=== PATIENT | male | born 1950 | race Two or more races ===

== ENCOUNTER 2022-08-24 04:32 | Inpatient (IN) | payer MEDICARE, OTHER ==
[~2022-08-24] VITALS: Ht 167.6 cm; Wt 72.1 kg
--- NOTE | 2022-08-24 04:45 | NUR ---
MARLEEN 83 FROM HOME FOR C/O ABD PAIN , N/V/D X 1 DAY. PATIENT IS AAOX4. ABLE TO MAKE NEEDS KNOWN. PATIENT IS HAVING ABDOMINAL CRAMPS AND ASKING FOR PAIN MEDS. PATIENT IS PLACED COMFORTABLY IN BE.D VITALS CHECKED.
--- NOTE | 2022-08-24 05:13 | NUR ---
IV CANNULA G20 INSERTED ON LEFT WRIST G20. BLOOD DRAWN AND SENT TO LAB
[2022-08-24 05:21] LABS: BASOPHILS % (AUTO) 0.3 % (0.0-2.0); EOSINOPHILS % (AUTO) 0.3 % (0.0-6.0); HEMATOCRIT 51 % (39-51); HEMOGLOBIN 16.6 g/dL (13.5-17.5); LYMPHOCYTES % (AUTO) 6.3 % (20.0-44.0); MEAN CORPUSCULAR HGB CONC 33 g/dl (31.0-36.0); MEAN CORPUSCULAR VOLUME 90 fL (80-96); MONOCYTES % (AUTO) 6.3 % (2.0-12.0); NEUTROPHILS # (AUTO) 13.9 K/uL (1.8-8.9); NEUTROPHILS % (AUTO) 86.8 % (43.0-81.0); PLATELET COUNT (AUTO) 317 K/uL (150-450); RED BLOOD CELL COUNT(AUTO) 5.67 MIL/uL (4.5-6.0)
[2022-08-24 05:40] LABS: ALANINE AMINOTRANSFERASE 23 U/L (12-78); ALBUMIN 3.8 g/dL (3.4-5.0); ALKALINE PHOSPHATASE 104 U/L (46-116); ASPARTATE AMINOTRANSFERASE 19 U/L (15-37); BILIRUBIN,DIRECT 0.2 mg/dL (0.0-0.2); BILIRUBIN,TOTAL 0.7 mg/dL (0.2-1.0); CALCIUM, SERUM 9.5 mg/dL (8.5-10.1); CARBON DIOXIDE 22 mmol/L (21-32); CHLORIDE 99 mmol/L (98-107); CREATININE 1.2 mg/dL (0.6-1.3); GLUCOSE 195 mg/dL (74-106); LIPASE 122 U/L (73-393); POTASSIUM 4.1 mmol/L (3.5-5.1); SODIUM SERUM 131 mmol/L (136-145); TOTAL PROTEIN, SERUM 7.7 g/dL (6.4-8.2); UREA NITROGEN, BLOOD 20 mg/dL (7-18)
[2022-08-24] MEDS ORDERED: MORPHINE SULFATE INJ 2 MG/ML DISP.SYRIN IV ONE (06:00)
[2022-08-24] MEDS ORDERED: PIPERACILLIN /TAZOBACTAM 3.375 G in IV D5W 50 ML IV ONE (06:00)
--- NOTE | 2022-08-24 06:00 | NUR ---
CRIME SCENE SPECIALIST CAME TO DRAW BLOOD
[2022-08-24] MEDS ORDERED: PIPERACILLIN /TAZOBACTAM 3.375 G VIAL IV ONE (06:07)
[2022-08-24] MEDS ORDERED: MORPHINE SULFATE INJ 2 MG/ML DISP.SYRIN ONE (06:07)
--- NOTE | 2022-08-24 06:11 | NUR ---
TAKEN TO CT VIA [facility]
--- NOTE | 2022-08-24 06:11 | NUR ---
URINE SPECIMEN SENT TO LAB
[2022-08-24 06:24] LABS: BILIRUBIN,URINE NEGATIVE (NEGATIVE); COLOR,URINE YELLOW (YELLOW); LEUKOCYTE ESTERASE ,URINE NEGATIVE (NEGATIVE); NITRITE, URINE NEGATIVE (NEGATIVE); PH,URINE 8.5 (5.0-8.0); PROTEIN,URINE TRACE mg/dl (NEGATIVE); UGLUCOSE NEGATIVE (NEGATIVE); UROBILINOGEN,URINE 0.2 EU/dL (0.2)
--- NOTE | 2022-08-24 06:27 | NUR ---
CAME BACK FROM CT SCAN
--- NOTE | 2022-08-24 06:58 | NUR ---
COVID SWAB DONE AND SENT TO LAB
--- NOTE | 2022-08-24 06:59 | NUR ---
DR EDWARDS PAGED PER DR NELSON
[2022-08-24] MEDS ORDERED: KETOROLAC TROMETHAMINE INJ 30 MG/ML VIAL IV ONE (07:00)
[2022-08-24] MEDS ORDERED: IV NS 0.9% 1,000 ML IV ONE (07:00)
[2022-08-24] MEDS ORDERED: KETOROLAC TROMETHAMINE INJ 30 MG/ML VIAL ONE (07:05)
--- NOTE | 2022-08-24 07:15 | NUR ---
RECEIVED PT FROM IMELDA FIELDS PT AWAKE AND ALERT NO ABDOMINAL pain no n/v
--- NOTE | 2022-08-24 07:16 | NUR ---
REPORT GIVEN TO DIAMOND LEE
--- NOTE | 2022-08-24 08:21 | NUR ---
NGTUbe placed , called xray for confirmation.
--- NOTE | 2022-08-24 08:34 | NUR ---
ABDOMIN Soft no distention
--- NOTE | 2022-08-24 09:21 | NUR ---
SON HERE (JESSE STOVER ) [phone]
--- NOTE | 2022-08-24 09:40 | NUR ---
room 113-2
[2022-08-24] MEDS ORDERED: Z GUARD REMEDY 4 OZ OINT TP PRN (10:00)
[2022-08-24] MEDS ORDERED: MAGNESIUM HYDROXIDE 30 ML UDC PO PRN (10:00)
[2022-08-24] MEDS ORDERED: ACETAMINOPHEN 325 MG TABLET PO PRN (10:00)
[2022-08-24] MEDS ORDERED: MAG HYDROX/AL HYDROX/SIMETH 30 ML UDC PO PRN (10:00)
--- NOTE | 2022-08-24 10:00 | NUR ---
NGT TO LOW TO LOW INTERMETED SUCTION DRANNING BROWNISH COLOR 200ML ABDMINE SOFT NO N/V
[2022-08-24] MEDS ORDERED: PANT40TA49 PO (10:03)
--- NOTE | 2022-08-24 10:30 | NUR ---
TO X RAY FOR ABDOMINAL SERAE
--- NOTE | 2022-08-24 10:53 | NUR ---
HAND OFF AIDA. Feliberto FIELDS TO ROOM 113-2
--- NOTE | 2022-08-24 13:26 | NUR ---
SPOKE WITH RADIOLOGY, JUST FINISHED SERIES AND NEED TO TALK TO . PT WILL BE BROUGHT BACK TO ER BED 3, AND WE WILL TRANSFER TO 113
--- NOTE | 2022-08-24 14:00 | NUR ---
[facility]
--- NOTE | 2022-08-24 14:05 | NUR ---
to room 113-b via miguel awake and alert
--- NOTE | 2022-08-24 14:20 | NUR ---
ENTERPRISE ENGINEER NOTE ADMIT 72 YEARS OLD MALE TO ROOM 113-2 ON MEDSURG MONITORING,ALERT ORIENTED X4 VERBALLY RESPONSIVE,ON ROOM AIR 94% IV LEFT FOREARM #20 INTACT PATENT,ADMITTING DIAGNOSIS IS SMALL BOWEL OBSTRUCTION,ON NGT INTERMATE SUCTIONING,SAFETY MEASURE IMPLEMENT BED IN LOW POSITION AND LOCKED,CALL LIGHT WITHIN REACH CONTINUE TO MONITOR
[2022-08-24] MEDS: IV NS 0.9% 1,000 ML IV PRN (14:48)
[2022-08-24 15:16] VITALS: BP 136/76
[2022-08-24] MEDS: MORPHINE SULFATE INJ 2 MG/ML DISP.SYRIN IV PRN ×2 (18:12→23:42)
--- NOTE | 2022-08-24 18:43 | NUR ---
RN CLOSING NOTE 72 YEARS OLD MALE PATIENT, ADMITTED TODAY, ALERT ORIENTED X4 VERBALLY RESPONSIVE,ON ROOM AIR 94% IV LEFT FOREARM #20 INTACT, FLUSHES WELL. PT NPO, ADMITTING DIAGNOSIS IS SMALL BOWEL OBSTRUCTION, ON NGT INTERMITTENT SUCTION. C/O PAIN 8 OUT OF 10, 2MG IV MORPHINE GIVEN. SAFETY MEASURE IMPLEMENT BED IN LOW POSITION AND LOCKED,CALL LIGHT WITHIN REACH CONTINUE TO MONITOR
--- NOTE | 2022-08-24 19:30 | NUR ---
MS1 RN NOTES RECEIVED ON BED A/O X4,LITHUANIAN,UNDERSTAND COOK ISLANDER.IVF NS AT 75ML/HR RATE INFUSING VIA IV PUMP.NPO STATUS IN RELATION TO DIAGNOSIS.WITH NGT TO LIS,NOTED ABDOMINAL DISTENTION.AMBULATE WITH STEADY GAIT.WILL MONITOR TSTAUS,CALL LIGHT IN REACH,NEEDS ANTICIPATED.
[2022-08-24 20:00] VITALS: BP 120/82
[2022-08-24] MEDS: ONDANSETRON HCL/PF 4 MG/2 ML VIAL IVP PRN (20:24)
--- NOTE | 2022-08-24 20:24 | NUR ---
MS1 RN NOTES FEELING NAUSEATED,ZOFRAN 4MG IV GIVEN ORDERED.WILL MONITOR FOR ACTIVE VOMITING
--- NOTE | 2022-08-24 23:42 | NUR ---
MS1 RN NOTES C/O ABDOMINAL PAIN 8/10 ON PAIN SCALE,MOANS,MORPHINE 2MG IV GIVEN ORDERED.WILL MONITOR FOR NAUSEA/VOMITING
[2022-08-25] MEDS: ONDANSETRON HCL/PF 4 MG/2 ML VIAL IVP PRN ×2 (01:50→12:33)
--- NOTE | 2022-08-25 01:50 | NUR ---
MS1 RN NOTES C/O NAUSEA,ZOFRAN 4MG IV GIVEN ORDERED AND PER PATIENT REQUEST.
[2022-08-25 04:00] VITALS: BP 138/90
[2022-08-25] MEDS: MORPHINE SULFATE INJ 2 MG/ML DISP.SYRIN IV PRN ×3 (04:45→16:17)
--- NOTE | 2022-08-25 04:45 | NUR ---
MS RN NOTES AWAKE,MOANS IN PAIN,MEDICATED WITH MORPHINE 2MG IV ORDERED.
[2022-08-25] MEDS: IV NS 0.9% 1,000 ML IV PRN ×2 (04:57→20:15)
--- NOTE | 2022-08-25 06:39 | NUR ---
MS1 RN NOTES ON BED,PAIN MANAGEMENT EFFECTIVE,IVF INFUSING WELL TO RIGHT WRIST SALINE LOCK.NGT DRAINS 350ML LIGHT BROWN GASTRIC OUTPUT.KEPT NPO ORDERED,AWAITING SURGICAL CONSULT.ALL DUE MEDS GIVEN SCHEDULED.IN NO ACUTE DISTRESS.
[2022-08-25 06:49] LABS: BASOPHILS % (AUTO) 0.4 % (0.0-2.0); EOSINOPHILS % (AUTO) 0.5 % (0.0-6.0); HEMATOCRIT 46 % (39-51); LYMPHOCYTES % (AUTO) 19.4 % (20.0-44.0); MEAN CORPUSCULAR HGB CONC 33 g/dl (31.0-36.0); MEAN CORPUSCULAR VOLUME 88 fL (80-96); MONOCYTES # (AUTO) 1.1 K/uL (0.1-1.30); MONOCYTES % (AUTO) 22.3 % (2.0-12.0); NEUTROPHILS # (AUTO) 2.9 K/uL (1.8-8.9); NEUTROPHILS % (AUTO) 57.4 % (43.0-81.0); PLATELET COUNT (AUTO) 309 K/uL (150-450); RED BLOOD CELL COUNT(AUTO) 5.17 MIL/uL (4.5-6.0); WHITE BLOOD COUNT (AUTO) 5.1 K/uL (4.3-11.0)
--- NOTE | 2022-08-25 07:20 | NUR ---
NEEDLE PROCESS FELT GOODS SUPERVISOR OPENING NOTES\ Recieved pt awake in bed AOx4. No complaints of pain or discomfort at this time. Respirations are equal and unlabored with no SOB. PT has an NGT and remains NPO at this time. HOB elevated to 30-45 degrees. Siderails up at all times. Call light within reach,. Will continue current plan of care.
[2022-08-25 07:55] LABS: ALBUMIN 3.2 g/dL (3.4-5.0); BILIRUBIN,DIRECT 0.2 mg/dL (0.0-0.2); BILIRUBIN,TOTAL 0.7 mg/dL (0.2-1.0); CALCIUM, SERUM 8.6 mg/dL (8.5-10.1); CREATININE 1.2 mg/dL (0.6-1.3); MAGNESIUM 2.2 mg/dL (1.8-2.4); PHOSPHORUS 3.5 mg/dL (2.5-4.9); POTASSIUM 4.1 mmol/L (3.5-5.1); TOTAL PROTEIN, SERUM 6.8 g/dL (6.4-8.2)
[2022-08-25] MEDS: PANTOPRAZOLE 40 MG VIAL IV SCH (09:32)
[2022-08-25 12:00] VITALS: BP 143/80
--- NOTE | 2022-08-25 18:38 | NUR ---
ADVANCED PRACTICE PROFESSIONAL CLOSING NOTES Pt is awake in bed. No complaints of pain or discomfort at this time. Pt is on RA and tolerating it well. IV access on right hand patent and intact. NGT draining well via intermittnet suctioning. HOB elevated to 30-45 degrees. Siderails up at all times. bed locked. Call light within reach. Will endorse to oncoming nurse.
--- NOTE | 2022-08-25 19:05 | NUR ---
RN NOTES: RECEIVED AWAKE IN BED, CONVERSANT A/OX3-4, ORIENTED TO UNIT AND STAFF, NON LABORED BREATHING ON NGT WITH CONTINUOS SUCTION, DRAINAGE AT 400 CC LEVEL, PER ENDORSEMENT 200CC DRAINED IN PREVIOUS SHIFT, BLACKISH/BROWN COLORED DRAINAGE,ON NPO, PENDING TO BE SEEN BY SURGEON, SKIN IS INTACT, IV CANNULA ON THE RIGHT HAND G#20. IVF OF NS AT 75 ML/HR ALMOST COMPLETED, HE HAD HIS PAIN MEDICATION, SAFTEY PRECAUTION OBSERVED,KEPT CALL LIGHT WITHIN EASY REACH.
[2022-08-25 20:00] VITALS: BP 132/89
--- NOTE | 2022-08-25 20:13 | NUR ---
DIAMOND NOTES: 1VF CONSUMED-STARTED NEW BAG ON NS AT 75 ML/HR Addendum: 08/25/22 at 2016 by ROLLY BAUTISTA RN ADDED NOTES: UNABLE TO SCAN, MANUALLY ENTERED BARCODE, WITNESS BY ANOTHER DIAMOND/MARTIN.
[2022-08-25 21:12] LABS: BAND % (MANUAL) 4 % (0.0-5.0); LYMPHOCYTES % (MANUAL) 28 % (16-48); MONOCYTES % (MANUAL) 10 % (0-11.0); NEUTROPHILS % (MANUAL) 58 (42-76)
[2022-08-26 04:00] VITALS: BP 127/90
--- NOTE | 2022-08-26 06:55 | NUR ---
RN NOTES: AWAKE, ABLE TO SLEEP WELL IN THE NIGHT, DID NOT ASK FOR ANY PAIN MEDICATION LAST NIGHT, OUTPUT IN NGT IS 150 ML, FOR LABS IN THE MORNING, HE WAS VERBALIZING HE FELT LIKE HE IS HAVING A SORE THROAT, WILL ENDORSED TO NEXT SHIFT TO NOTIFY PMD IN THE MORNING.
[2022-08-26 07:12] LABS: BASOPHILS % (AUTO) 0.6 % (0.0-2.0); HEMATOCRIT 42 % (39-51); HEMOGLOBIN 13.7 g/dL (13.5-17.5); LYMPHOCYTES # (AUTO) 1.3 K/uL (0.8-4.8); LYMPHOCYTES % (AUTO) 21.9 % (20.0-44.0); MEAN CORPUSCULAR HGB CONC 33 g/dl (31.0-36.0); MEAN CORPUSCULAR VOLUME 89 fL (80-96); MONOCYTES # (AUTO) 1.1 K/uL (0.1-1.30); MONOCYTES % (AUTO) 18.1 % (2.0-12.0); NEUTROPHILS # (AUTO) 3.3 K/uL (1.8-8.9); NEUTROPHILS % (AUTO) 57.4 % (43.0-81.0); PLATELET COUNT (AUTO) 254 K/uL (150-450); RED BLOOD CELL COUNT(AUTO) 4.72 MIL/uL (4.5-6.0); WHITE BLOOD COUNT (AUTO) 5.8 K/uL (4.3-11.0)
--- NOTE | 2022-08-26 07:27 | NUR ---
RN OPENING NOTES Recieved pt awake in bed AOx4. No complaints of pain or discomfort at this time. Respirations are equal and unlabored with no SOB. PT has an NGT and remains NPO at this time. HOB elevated to 30-45 degrees. Siderails up at all times. Call light within reach. Plan of care continue.
[2022-08-26 07:45] LABS: CALCIUM, SERUM 8.3 mg/dL (8.5-10.1); POTASSIUM 3.8 mmol/L (3.5-5.1)
[2022-08-26] MEDS: PANTOPRAZOLE 40 MG VIAL IV SCH (08:03)
--- NOTE | 2022-08-26 08:15 | NUR ---
RN NOTES DOCTOR KRAMER AT THE BEDSIDE, PATIENT PASSING GAS, NO NEED FOR A REPEAT XRAY PER MD. NO N/V NOTED. ENCOURAGED PATIENT TO AMBULATE.
[2022-08-26] MEDS ORDERED: KETOROLAC TROMETHAMINE INJ 30 MG/ML VIAL IV PRN (10:30)
--- NOTE | 2022-08-26 10:30 | NUR ---
NOTED PATIENT HAD MEDIUM BOWEL MOVEMENT, PATIENT REQUESTING NGT TO BE REMOVED, INFORMED MD, AWAITING ORDERS. PLAN OF CARE CONTINUE.
--- NOTE | 2022-08-26 12:02 | NUR ---
ms rn note per dr caren pichardo to [facility] , order carried out
--- NOTE | 2022-08-26 12:36 | NUR ---
KUB DONE, AWAITING FOR RESULTS. PLAN OF CARE CONTINUE.
[2022-08-26] MEDS: IV NS 0.9% 1,000 ML IV PRN (13:15)
--- NOTE | 2022-08-26 13:22 | NUR ---
RAINA RESULTS RECEIVED, DR. BALDERRAMA INFORMED, AWAITING FOR RESPOND. PLAN OF CARE CONTINUE.
--- NOTE | 2022-08-26 14:11 | NUR ---
MS RN NOTE PER DR GRACE LAWRENCE TO START CLEAR LIQUIDS AND CLUMP N GTUBE TO SEE HOW HE TOLERATES, WILL F\U
--- NOTE | 2022-08-26 15:32 | NUR ---
PATIENT TOLERATING CLEAR LIQUIDS AND WATER, NO NAUSEA/VOMITING, DENIES ANY PAIN OR ABDOMINAL DISCOMFORT, PLAN OF CARE CONTINUE.
[2022-08-26 16:00] VITALS: BP 130/72
--- NOTE | 2022-08-26 17:48 | NUR ---
PATIENT TOLERATING CLEAR LIQUID DIET, NO VOMITING OR NAUSEA NOTED. DENIES ABDOMINAL PAIN, INFORMED DR. EDWARDS, WITH NEW ORDER TO D/C NGT. NOTED AND CARRIED OUT.
--- NOTE | 2022-08-26 18:05 | NUR ---
NGT REMOVED PER MD'S ORDER, PATIENT TOLERATED NGT REMOVAL. PLAN OF CARE CONTINUE.
--- NOTE | 2022-08-26 18:11 | NUR ---
RN CLOSING NOTES PATIENT IN BED AWAKE, EATING, ALERT AND VERBALLY RESPONSIVE, AOx4. No complaints of pain or discomfort at this time. Respirations are equal and unlabored with no SOB, ON ROOM AIR. RIGHT HAND PIV NOTED PATENT AND INTACT, FLUSHES WELL, WITH IV NS @75ML RUNNING. SAFETY MEASURES IN PLACED. Call light within reach. WILL ENDORSE TO LICENSED STAFF MFT NURSE FOR SHIRA.
--- NOTE | 2022-08-26 18:19 | NUR ---
FAXED [facility] TO REQUEST MEDICAL RECORDS REGARDING PAST SURGERY. FAX CONFIRMATION #[id number]
--- NOTE | 2022-08-26 19:32 | NUR ---
RN OPENING NOTE PATIENT AWAKE IN BED. A/OX4. NO S/S OF DISTRESS, BREATHING WITHOUT DIFFICULTY ON ROOM AIR. R-HAND #20 INTACT AND PATENT W/ NS 75ML/HR. SAFETY MEASURES IN PLACE: BED LOCKED AND AT LOWEST POSITION, RAILS UP X2, CALL KITCHEN WITHIN REACH. WILL CONTINUE TO MONITOR PATIENT.
[2022-08-27 00:01] VITALS: BP 119/93
[2022-08-27] MEDS: IV NS 0.9% 1,000 ML IV PRN (04:27)
[2022-08-27 05:25] LABS: BAND % (MANUAL) 12 % (0.0-5.0); BASOPHILS % (MANUAL) 0 % (0.0-2.0); EOSINOPHILS % (MANUAL) 5 % (0-4); LYMPHOCYTES % (MANUAL) 9 % (16-48); MONOCYTES % (MANUAL) 20 % (0-11.0); NEUTROPHILS % (MANUAL) 54 (42-76)
[2022-08-27 06:21] LABS: BASOPHILS % (AUTO) 0.4 % (0.0-2.0); EOSINOPHILS % (AUTO) 5.6 % (0.0-6.0); HEMATOCRIT 43 % (39-51); HEMOGLOBIN 13.9 g/dL (13.5-17.5); LYMPHOCYTES # (AUTO) 1.5 K/uL (0.8-4.8); MEAN CORPUSCULAR HGB CONC 33 g/dl (31.0-36.0); MEAN CORPUSCULAR VOLUME 90 fL (80-96); MONOCYTES # (AUTO) 0.8 K/uL (0.1-1.30); MONOCYTES % (AUTO) 13.6 % (2.0-12.0); NEUTROPHILS # (AUTO) 3.3 K/uL (1.8-8.9); NEUTROPHILS % (AUTO) 55.4 % (43.0-81.0); PLATELET COUNT (AUTO) 244 K/uL (150-450); RED BLOOD CELL COUNT(AUTO) 4.75 MIL/uL (4.5-6.0)
--- NOTE | 2022-08-27 06:54 | NUR ---
RN CLOSING NOTE PATIENT AWAKE IN BED. A/OX4. NO S/S OF DISTRESS, BREATHING WITHOUT DIFFICULTY ON ROOM AIR. L-HAND #20 INTACT AND PATENT W/ NS 75 ML/HR. SAFETY MEASURES IN PLACE: BED LOCKED AND AT LOWEST POSITION, RAILS UP X2, CALL KITCHEN WITHIN REACH. WILL ENDORSE TO NEXT SHIFT FOR SHIRA.
[2022-08-27 07:02] LABS: CALCIUM, SERUM 8.3 mg/dL (8.5-10.1); CREATININE 0.8 mg/dL (0.6-1.3); POTASSIUM 3.7 mmol/L (3.5-5.1)
--- NOTE | 2022-08-27 07:30 | NUR ---
ms rn received on bed,awake,alert,oriented x4,not in any form of distress, respirations even and unlabored,no sob noted,lungs are clear,abdoemn soft,positve bowel sounds,denies pain at this time,all needs attended.
[2022-08-27 08:00] VITALS: BP 127/72
--- NOTE | 2022-08-27 09:20 | NUR ---
ms solomon breakfast served,due meds given,tolerated well.
[2022-08-27] MEDS: PANTOPRAZOLE 40 MG VIAL IV SCH (10:05)
--- NOTE | 2022-08-27 11:30 | NUR ---
ms rn was seen by dr. martinez, will be discharge home today.
[2022-08-27 16:00] VITALS: BP 127/72
--- NOTE | 2022-08-27 18:00 | NUR ---
ms furnace tapper instruction given and understood, patient went home accompanied by son,all needs attended.
[2022-08-28] MEDS ORDERED: PANTOPRAZOLE 40 MG TABLET.DR PO SCH (09:00)
== END 2022-08-27 18:26 | disposition home or self-care (01) | DRG 388 ==
LOC: ER 04:34 → MEDSG1 09:54
PROVIDERS: ADMIT Internal Medicine; ATTEND Internal Medicine
DX: K56.609 Unspecified intestinal obstruction, unspecified as to partial versus complete obstruction (principal); N17.0 Acute kidney failure with tubular necrosis; E87.1 Hypo-osmolality and hyponatremia; K59.09 Other constipation; Z20.822 Contact with and (suspected) exposure to COVID-19; K21.9 Gastro-esophageal reflux disease without esophagitis; Z87.11 Personal history of peptic ulcer disease; Z90.3 Acquired absence of stomach [part of]; Z85.028 Personal history of other malignant neoplasm of stomach; E88.09 Other disorders of plasma-protein metabolism, not elsewhere classified; Z87.891 Personal history of nicotine dependence; D72.829 Elevated white blood cell count, unspecified; R73.9 Hyperglycemia, unspecified
CPT/HCPCS: 36415; 71045-TC; 74018; 74250-TC; 80048-TC; 80076-TC; 83605-TC; 83690-TC; 83735-TC; 84100-TC; 84484-TC; 85025-TC; 85730-TC; 87040-TC; 87081-TC; 87086-TC; C9113; C9803; G0378; J1885; J2270; J2405; J2543; J7030; J7060

== ENCOUNTER 2024-02-20 21:17 | Inpatient (IN) | payer MEDICARE, OTHER ==
[~2024-02-20] VITALS: Ht 165.1 cm; Wt 68.0 kg
[~2024-02-20 21:17] MED LIST: PANT40TA49 PO
[2024-02-21] VITALS (9 sets, daily range): BP systolic 117–145; BP diastolic 53–80; TEMP 97.7–98.6; O2SAT 93–97
[2024-02-21] MEDS ORDERED: ACETAMINOPHEN 325 MG TABLET PO PRN (02:00)
[2024-02-21] MEDS ORDERED: MAG HYDROX/AL HYDROX/SIMETH 30 ML UDC PO PRN (02:00)
[2024-02-21] MEDS ORDERED: MAGNESIUM HYDROXIDE 30 ML UDC PO PRN (02:00)
[2024-02-21] MEDS ORDERED: ONDANSETRON HCL/PF 4 MG/2 ML VIAL IVP PRN (02:00)
[2024-02-21] MEDS ORDERED: DEXTROSE 50%-WATER 50 ML DISP.SYRIN IV PRN (02:00)
[2024-02-21] MEDS: IV NS 0.9% 1,000 ML IV SCH (02:28)
[2024-02-21] MEDS: BLOOD SUGAR DIAGNOSTIC 1 EACH STRIP IN SCH (05:21)
[2024-02-21 06:54] LABS: BASOPHILS # (AUTO) 0.1 K/uL (0.0-0.2); BASOPHILS % (AUTO) 1.2 % (0.0-2.0); EOSINOPHILS # (AUTO) 0.2 K/uL (0.0-0.7); EOSINOPHILS % (AUTO) 3.2 % (0.0-6.0); HEMATOCRIT 24 % (39-51); HEMOGLOBIN 7.1 g/dL (13.5-17.5); LYMPHOCYTES # (AUTO) 1.7 K/uL (0.8-4.8); LYMPHOCYTES % (AUTO) 23.8 % (20.0-44.0); MEAN CORPUSCULAR HEMOGLOBIN 20 PG (26.0-33.0); MEAN CORPUSCULAR HGB CONC 30 g/dl (31.0-36.0); MEAN CORPUSCULAR VOLUME 65 fL (80-96); MONOCYTES # (AUTO) 0.5 K/uL (0.1-1.30); MONOCYTES % (AUTO) 7.3 % (2.0-12.0); NEUTROPHILS # (AUTO) 4.7 K/uL (1.8-8.9); NEUTROPHILS % (AUTO) 64.5 % (43.0-81.0); PLATELET COUNT (AUTO) 356 K/uL (150-450); RED CELL DISTRIBUTION WIDTH 23.4 % (11.5-15.0); WHITE BLOOD COUNT (AUTO) 7.3 K/uL (4.3-11.0)
[2024-02-21 07:09] LABS: INR 1.09 (0.91-1.10); PARTIAL THROMBOPLASTIN TIME 28.9 SEC (24.3-34.3); PROTHROMBIN TIME 11.5 SECS (9.2-11.1)
[2024-02-21 07:18] LABS: CALCIUM, SERUM 8.5 mg/dL (8.5-10.1); CARBON DIOXIDE 24 mmol/L (21-32); CHLORIDE 107 mmol/L (98-107); CREATININE 0.8 mg/dL (0.6-1.3); GLUCOSE 106 mg/dL (74-106); MAGNESIUM 2.2 mg/dL (1.8-2.4); POTASSIUM 3.6 mmol/L (3.5-5.1); SODIUM SERUM 139 mmol/L (136-145); UREA NITROGEN, BLOOD 12 mg/dL (7-18)
[2024-02-21] MEDS: PANTOPRAZOLE 40 MG VIAL IV SCH (08:28)
[2024-02-21 12:06] LABS: IRON, SERUM 15 ug/dl (50-175); TOTAL IRON BINDING CAPACITY 308 ug/dl (250-450)
[2024-02-21 12:15] LABS: FERRITIN 5 ng/mL (8-388)
[2024-02-21 13:37] LABS: HEMOGLOBIN 7.3 g/dL (13.5-17.5)
[2024-02-21] MEDS: SOD FERRIC GLUC 125 MG in IV NS 0.9% 100 ML IV SCH (16:09)
[2024-02-22] VITALS: BP 145/79; TEMP 98.5; O2SAT 95
[2024-02-22 01:05] VITALS: BP 126/76; TEMP 98.6
[2024-02-22 04:44] VITALS: BP 121/66; TEMP 98.1; O2SAT 94
[2024-02-22 07:00] VITALS: BP 130/78; TEMP 98.1; O2SAT 94
[2024-02-22 07:18] LABS: BASOPHILS # (AUTO) 0.1 K/uL (0.0-0.2); BASOPHILS % (AUTO) 1.4 % (0.0-2.0); EOSINOPHILS # (AUTO) 0.3 K/uL (0.0-0.7); EOSINOPHILS % (AUTO) 4.5 % (0.0-6.0); HEMATOCRIT 28 % (39-51); HEMOGLOBIN 8.5 g/dL (13.5-17.5); LYMPHOCYTES # (AUTO) 1.7 K/uL (0.8-4.8); LYMPHOCYTES % (AUTO) 22.5 % (20.0-44.0); MEAN CORPUSCULAR HEMOGLOBIN 21 PG (26.0-33.0); MEAN CORPUSCULAR HGB CONC 31 g/dl (31.0-36.0); MEAN CORPUSCULAR VOLUME 67 fL (80-96); MONOCYTES # (AUTO) 0.8 K/uL (0.1-1.30); MONOCYTES % (AUTO) 10.5 % (2.0-12.0); NEUTROPHILS # (AUTO) 4.7 K/uL (1.8-8.9); NEUTROPHILS % (AUTO) 61.1 % (43.0-81.0); PLATELET COUNT (AUTO) 343 K/uL (150-450); RED BLOOD CELL COUNT(AUTO) 4.15 MIL/uL (4.5-6.0); RED CELL DISTRIBUTION WIDTH 25.2 % (11.5-15.0); WHITE BLOOD COUNT (AUTO) 7.7 K/uL (4.3-11.0)
[2024-02-22 07:33] LABS: CALCIUM, SERUM 8.6 mg/dL (8.5-10.1); CREATININE 0.8 mg/dL (0.6-1.3); MAGNESIUM 2.1 mg/dL (1.8-2.4); PHOSPHORUS 3.2 mg/dL (2.5-4.9); POTASSIUM 3.8 mmol/L (3.5-5.1)
[2024-02-22 07:40] VITALS: BP 136/66; TEMP 98.2; O2SAT 95
[2024-02-22 09:39] LABS: OCCULT BLOOD STOOL POSITIVE (NEGATIVE)
[2024-02-22 13:00] VITALS: BP 122/71; TEMP 98.1; O2SAT 97
[2024-02-22] MEDS: IV NS 0.9% 1,000 ML IV PRN (23:15)
[2024-02-22] MEDS: INSULIN REGULAR, HUMAN 100 UNIT/ML 3 ML VIAL SQ PRN (23:43)
[2024-02-23 07:00] VITALS: BP 126/66; TEMP 97.5; O2SAT 95
[2024-02-23 07:03] LABS: BASOPHILS # (AUTO) 0.1 K/uL (0.0-0.2); BASOPHILS % (AUTO) 1.2 % (0.0-2.0); EOSINOPHILS # (AUTO) 0.4 K/uL (0.0-0.7); EOSINOPHILS % (AUTO) 6.2 % (0.0-6.0); HEMATOCRIT 28 % (39-51); HEMOGLOBIN 8.5 g/dL (13.5-17.5); LYMPHOCYTES # (AUTO) 1.7 K/uL (0.8-4.8); LYMPHOCYTES % (AUTO) 27.1 % (20.0-44.0); MEAN CORPUSCULAR HEMOGLOBIN 21 PG (26.0-33.0); MEAN CORPUSCULAR HGB CONC 31 g/dl (31.0-36.0); MEAN CORPUSCULAR VOLUME 67 fL (80-96); MONOCYTES # (AUTO) 0.6 K/uL (0.1-1.30); NEUTROPHILS # (AUTO) 3.6 K/uL (1.8-8.9); NEUTROPHILS % (AUTO) 56.5 % (43.0-81.0); PLATELET COUNT (AUTO) 341 K/uL (150-450); RED BLOOD CELL COUNT(AUTO) 4.12 MIL/uL (4.5-6.0); RED CELL DISTRIBUTION WIDTH 25.8 % (11.5-15.0); WHITE BLOOD COUNT (AUTO) 6.5 K/uL (4.3-11.0)
[2024-02-23 07:22] LABS: CALCIUM, SERUM 8.9 mg/dL (8.5-10.1); CARBON DIOXIDE 27 mmol/L (21-32); CHLORIDE 108 mmol/L (98-107); CREATININE 0.8 mg/dL (0.6-1.3); GLUCOSE 97 mg/dL (74-106); PHOSPHORUS 3.3 mg/dL (2.5-4.9); POTASSIUM 3.4 mmol/L (3.5-5.1); SODIUM SERUM 142 mmol/L (136-145); UREA NITROGEN, BLOOD 3 mg/dL (7-18)
[2024-02-23 07:43] LABS: ALBUMIN 2.4 g/dL (3.4-5.0); BILIRUBIN,DIRECT 0.2 mg/dL (0.0-0.2); BILIRUBIN,TOTAL 0.4 mg/dL (0.2-1.0); TOTAL PROTEIN, SERUM 5.6 g/dL (6.4-8.2)
[2024-02-23 07:54] LABS: THYROID STIMULATING HORMONE 7.3 uIU/mL (0.358-3.74)
[2024-02-23] MEDS ORDERED: FERR325T23 PO (09:24)
[2024-02-23] MEDS ORDERED: PANT40TA2 PO (09:24)
[2024-02-23] MEDS: POTASSIUM CHLORIDE 20 MEQ TAB.PRT.SR PO ONE (10:49)
[2024-02-23] MEDS ORDERED: POTASSIUM CL. PREMIX PERIPHER. 50 ML IV SCH (11:00)
[2024-02-23] MEDS ORDERED: CYANOCOBALAMIN 1,000 MCG/ML VIAL IM SCH (12:00)
[2024-02-24 08:09] LABS: FOLIC ACID 16.1 ng/mL (>3.0); IMMUNOGLOBULIN A, SERUM 92 mg/dL (61-437); IMMUNOGLOBULIN G, SERUM 798 mg/dL (603-1613); IMMUNOGLOBULIN M, SERUM 43 mg/dL (15-143)
[2024-02-26 12:10] LABS: *SPE A/G RATIO 0.9 (0.7-1.7); *SPE ALBUMIN 2.6 g/dL (2.9-4.4); *SPE ALPHA-1-GLOBULIN 0.3 g/dL (0.0-0.4); *SPE ALPHA-2-GLOBULIN 0.7 g/dL (0.4-1.0); *SPE BETA GLOBULIN 0.9 g/dL (0.7-1.3); *SPE GLOBULIN, TOTAL 2.8 g/dL (2.2-3.9); *SPE M-SPIKE Not Observed g/dL (Not Observed); *SPE PROTEIN TOTAL 5.4 g/dL (6.0-8.5); *SPEGAMMA GLOBULIN 0.9 g/dL (0.4-1.8)
== END 2024-02-23 11:40 | disposition home or self-care (01) | DRG 378 ==
LOC: TELE 02-21 00:07 → MED 02-22 17:24
PROVIDERS: ADMIT Nurse Practitioner Acute Care; ATTEND Nurse Practitioner Acute Care
PROC: 30233N1 Transfusion of Nonautologous Red Blood Cells into Peripheral Vein, Percutaneous Approach (ICD-10-PCS; 2024-02-21)
PROC: 0W3P8ZZ Control Bleeding in Gastrointestinal Tract, Via Natural or Artificial Opening Endoscopic (ICD-10-PCS; principal; 2024-02-22)
PROC: 0DB68ZX Excision of Stomach, Via Natural or Artificial Opening Endoscopic, Diagnostic (ICD-10-PCS; 2024-02-22)
DX: K25.4 Chronic or unspecified gastric ulcer with hemorrhage (principal); C77.2 Secondary and unspecified malignant neoplasm of intra-abdominal lymph nodes; D62 Acute posthemorrhagic anemia; E11.9 Type 2 diabetes mellitus without complications; Z90.3 Acquired absence of stomach [part of]; K63.89 Other specified diseases of intestine; Z85.028 Personal history of other malignant neoplasm of stomach; Z87.891 Personal history of nicotine dependence; Z87.11 Personal history of peptic ulcer disease; Z86.19 Personal history of other infectious and parasitic diseases; D50.9 Iron deficiency anemia, unspecified
CPT/HCPCS: 36415; 80048-TC; 80076-TC; 82272-TC; 82607-TC; 82728-TC; 82784; 82962-TC; 83540-TC; 83735-TC; 84100-TC; 84155; 84165; 84443-TC; 85025-TC; 85027-TC; 85730-TC; 86334; 86850-TC; 87081-TC; A4223; G0378; J1815; J2704; J2916; J3420; J3490; J7030; J7050; J7060; P9016

== ENCOUNTER 2024-04-16 16:08 | Inpatient (IN) | payer MEDICARE, OTHER ==
[~2024-04-16] VITALS: Ht 167.6 cm; Wt 63.5 kg
[~2024-04-16 16:08] MED LIST changes: +FERR325T23 PO; +PANT40TA2 PO; -PANT40TA49 PO
--- NOTE | 2024-04-16 16:15 | NUR ---
PT SENT TO ER BY DR LOAIZA FOR LOW HGB. PT TAKEN TO BED 4 AND CONNECTED TO MONITOR. WAITING FOR ER MD FLORES.
[2024-04-16 17:11] LABS: INR 1.1 (0.91-1.10); PARTIAL THROMBOPLASTIN TIME 27.5 SEC (24.3-34.3); PROTHROMBIN TIME 11.6 SECS (9.2-11.1)
[2024-04-16 17:15] LABS: CARBON DIOXIDE 28 mmol/L (21-32); CHLORIDE 106 mmol/L (98-107); CREATININE 0.8 mg/dL (0.6-1.3); GLUCOSE 109 mg/dL (74-106); POTASSIUM 4.3 mmol/L (3.5-5.1); SODIUM SERUM 138 mmol/L (136-145); UREA NITROGEN, BLOOD 15 mg/dL (7-18)
[2024-04-16 17:17] LABS: CALCIUM, SERUM 8.4 mg/dL (8.5-10.1)
[2024-04-16 17:20] LABS: ALANINE AMINOTRANSFERASE 19 U/L (12-78); ALBUMIN 2.8 g/dL (3.4-5.0); ALKALINE PHOSPHATASE 93 U/L (46-116); ASPARTATE AMINOTRANSFERASE 11 U/L (15-37); BILIRUBIN,TOTAL 0.2 mg/dL (0.2-1.0)
[2024-04-16 17:22] LABS: BASOPHILS # (AUTO) 0.1 K/uL (0.0-0.2); BASOPHILS % (AUTO) 1.5 % (0.0-2.0); EOSINOPHILS # (AUTO) 0.3 K/uL (0.0-0.7); EOSINOPHILS % (AUTO) 3.6 % (0.0-6.0); HEMATOCRIT 24 % (39-51); HEMOGLOBIN 7.2 g/dL (13.5-17.5); LYMPHOCYTES # (AUTO) 1.4 K/uL (0.8-4.8); LYMPHOCYTES % (AUTO) 19.8 % (20.0-44.0); MEAN CORPUSCULAR HEMOGLOBIN 22 PG (26.0-33.0); MEAN CORPUSCULAR HGB CONC 30 g/dl (31.0-36.0); MEAN CORPUSCULAR VOLUME 74 fL (80-96); MONOCYTES # (AUTO) 0.5 K/uL (0.1-1.30); MONOCYTES % (AUTO) 7.5 % (2.0-12.0); NEUTROPHILS # (AUTO) 4.9 K/uL (1.8-8.9); NEUTROPHILS % (AUTO) 67.6 % (43.0-81.0); PLATELET COUNT (AUTO) 347 K/uL (150-450); RED BLOOD CELL COUNT(AUTO) 3.25 MIL/uL (4.5-6.0); RED CELL DISTRIBUTION WIDTH 23.9 % (11.5-15.0); WHITE BLOOD COUNT (AUTO) 7.2 K/uL (4.3-11.0)
--- NOTE | 2024-04-16 18:55 | NUR ---
BLOOD TRANSFUSION INITATED AT 75 ML/HR.
--- NOTE | 2024-04-16 19:10 | NUR ---
GOT BED AFTER CHANGE OF SHIFT 108. ADMITTING INFORMED.
--- NOTE | 2024-04-16 19:10 | NUR ---
NO ADVERSE REACTIONS WITHIN FIRST 15 MINUTES. BLOOD TRANSFUSION RATE INCREASED TO 175 ML/HR.
--- NOTE | 2024-04-16 19:11 | NUR ---
ENDORSED BLOOD TRANSFUSION TO ACCOUNT RESOLUTION ANALYST RN
--- NOTE | 2024-04-16 19:38 | NUR ---
HOSPITALIST AT BEDSIDE
--- NOTE | 2024-04-16 19:46 | NUR ---
REPORT TO MI
[2024-04-16 20:00] VITALS: BP 115/74; TEMP 97.9; O2SAT 95
[2024-04-16] MEDS ORDERED: Z GUARD REMEDY 4 OZ OINT TP PRN (20:00)
[2024-04-16] MEDS ORDERED: ONDANSETRON HCL/PF 4 MG/2 ML VIAL IVP PRN (20:00)
--- NOTE | 2024-04-16 20:00 | NUR ---
RN OPENING NOTES ADMITTED PTS FROM ER [facility]IA [facility] ,ASSESSMENT DONE . BELONGING CHECK BY BANBURY MACHINE OPERATOR .SKIN INTACT , PIV RIGHT WRIST #20 INFUSING N/S AT 75 MLS/HR .PTS NPO MIDNIGHT.PTS ORIENTED TO HIS RM .PTS DENIES PAIN/DISCOMPORT AT PRESENT .PRBC INFUSING WELL,AND CONTINUED INFUSING, NO BLOOD REACTION NOTED AT THIS TIME.CALL KITCHEN WITH IN REACH,BED IN LOW POSITION/LOCKED.WILL CONTINUE THE PLAN OF CARE.
--- NOTE | 2024-04-16 20:04 | NUR ---
pt transported to 108 in stable condition
[2024-04-16] MEDS: IV NS 0.9% 1,000 ML IV PRN (20:41)
[2024-04-16] MEDS: PANTOPRAZOLE 40 MG VIAL IV ONE (21:36)
[2024-04-16] MEDS: MAG HYDROX/AL HYDROX/SIMETH 30 ML UDC PO ONE (21:36)
[2024-04-17 04:00] VITALS: BP 121/63; TEMP 98.2; O2SAT 95
--- NOTE | 2024-04-17 06:36 | NUR ---
RN CLOSING NOTES PTS IS NPO SINCE MIDNIGHT NO BLEEDING NOTED .A/OX4 AMBULATORY TO BR.PTS DENIES PAIN/DISCOMPORT.PTS ON RA,SAT95%.PTS SLEPT WELL LAST NIGHT.CALL KITCHEN WITH IN REACH BED IN LOW POSITION /LOCKED.WILL CONTINUE THE PLAN OF CARE.
[2024-04-17 07:14] LABS: BASOPHILS % (AUTO) 0.8 % (0.0-2.0); EOSINOPHILS # (AUTO) 0.3 K/uL (0.0-0.7); EOSINOPHILS % (AUTO) 5.1 % (0.0-6.0); HEMATOCRIT 25 % (39-51); HEMOGLOBIN 7.7 g/dL (13.5-17.5); LYMPHOCYTES # (AUTO) 1.3 K/uL (0.8-4.8); LYMPHOCYTES % (AUTO) 21.9 % (20.0-44.0); MEAN CORPUSCULAR HEMOGLOBIN 23 PG (26.0-33.0); MEAN CORPUSCULAR HGB CONC 31 g/dl (31.0-36.0); MEAN CORPUSCULAR VOLUME 75 fL (80-96); MONOCYTES # (AUTO) 0.6 K/uL (0.1-1.30); MONOCYTES % (AUTO) 9.2 % (2.0-12.0); NEUTROPHILS # (AUTO) 3.8 K/uL (1.8-8.9); PLATELET COUNT (AUTO) 307 K/uL (150-450); RED BLOOD CELL COUNT(AUTO) 3.36 MIL/uL (4.5-6.0); RED CELL DISTRIBUTION WIDTH 22.3 % (11.5-15.0)
[2024-04-17 07:39] LABS: CALCIUM, SERUM 8.1 mg/dL (8.5-10.1); CARBON DIOXIDE 24 mmol/L (21-32); CHLORIDE 108 mmol/L (98-107); CREATININE 0.7 mg/dL (0.6-1.3); GLUCOSE 123 mg/dL (74-106); PHOSPHORUS 3.1 mg/dL (2.5-4.9); POTASSIUM 3.8 mmol/L (3.5-5.1); SODIUM SERUM 142 mmol/L (136-145); UREA NITROGEN, BLOOD 13 mg/dL (7-18)
--- NOTE | 2024-04-17 07:49 | NUR ---
RN OPENING NOTE RECEIVED PT AWAKE IN BED, APPEARS COMFORTABLE. PTS IS NPO SINCE MIDNIGHT NO BLEEDING NOTED .A/OX4 AMBULATORY TO BR.PTS DENIES PAIN/DISCOMFORT.PTS ON RA, NO S/S OF SOB OR DISTRESS. BREATHING EVENLY/UNLABORED. DENIES DIZZINESS. IV ACCESS ON RIGHT WRIST 20G. PATENT/INTACT/FLUIDS RUNNING AT 75 CC/HR. SAFETY MEASURES MAINTAINED. BED IN LOWEST/LOCKED POSITION, WHEELS LOCKED, CALL LIGHT/BEDSIDE TABLE W/I REACH. WILL CONTINUE POC
[2024-04-17] MEDS: PANTOPRAZOLE 40 MG VIAL IV SCH (08:07)
[2024-04-17 08:33] VITALS: BP 126/72; TEMP 98.1; O2SAT 97
--- NOTE | 2024-04-17 11:58 | NUR ---
RN NOTE PT LEFT UNIT FOR SCHEDULED EGD. CONSENTS SIGNED AND PLACED IN CHART. PT LEFT VIA GURNEY IN STABLE MEDICAL CONDITION. NO S/S OF DISTRESS.
[2024-04-17] MEDS ORDERED: ANESTHESIA TRAY IN PYXIS 1 EA TRAY MC ONE (12:20)
[2024-04-17] MEDS ORDERED: ALBUTEROL FS 2.5 MG/3 ML VIAL.NEB ONE (13:05)
--- NOTE | 2024-04-17 13:50 | NUR ---
RN NOTE PT RETURNED ONTO UNIT VIA GURNEY FROM SCHEDULED EGD PROCEDURE. PT IS NOW ON 8 L SIMPLE MASK. WILL CONTINUE POC
[2024-04-17] MEDS: ACETAMINOPHEN 650 MG/20.3 ML UDC PO PRN (16:01)
[2024-04-17 16:14] VITALS: BP 136/67; TEMP 97.7; O2SAT 96
[2024-04-17] MEDS: SOD FERRIC GLUC 125 MG in IV NS 0.9% 100 ML IV SCH (18:33)
--- NOTE | 2024-04-17 18:33 | NUR ---
RN NOTE FERLECCIT LATE ADMINISTRATION DUE TO LATE INPUT BY PHARMACY. PHARMACY INPUT ORDER AT 1830. PHARMACY WAS NOTIFIED BY THIS RN, BUT PER PHARMACY MD IS AWARE AND STILL WANTS THE MEDICATION TO BE ADMINISTERED AT 1830 AND SINCE IT IS A DRS ORDER, THEY CAN NOT CHANGE THE TIME. PER PHARMACY, MD AWARE.
--- NOTE | 2024-04-17 18:40 | NUR ---
RN CLOSING NOTE PT AWAKE IN BED, APPEARS COMFORTABLE. PT RETURNED TO REGULAR DIET POST EGD, BUT HAS LITTLE APPETITE. DOES NOT WANT TO EAT OF NOW. .A/OX4 AMBULATORY TO BR. PTS DENIES PAIN/DISCOMFORT. DENIES DIZZINESS. IV ACCESS ON RIGHT WRIST 20G. PATENT/INTACT/FLUIDS RUNNING AT 75 CC/HR. PT IS S/P EGD WITH DR PEOPLES. PT RETURNED TO UNIT ON 8L SIMPLE MASK AND FELT SOB. PT IS NOW ON NASAL CANULA AND ON 5L. TOLERATING WELL. NO S/S OF DISTRESS OR SOB. BREATHING EVENLY/UNLABORED. SAFETY MEASURES MAINTAINED. BED IN LOWEST/LOCKED POSITION, WHEELS LOCKED, CALL LIGHT/BEDSIDE TABLE W/I REACH. SCHEDULED MEDICATIONS ADMINISTERED. PT TURNED/REPOSITIONED PER UNIT PROTOCOL. ALL NEEDS ANTICIPATED. WILL ENDORSE TO INCOMING RN FOR SHIRA.
--- NOTE | 2024-04-17 19:40 | NUR ---
RN OPENING NOTES PT AWAKE IN BED,A/OX4. APPEARS COMFORTABLE. PT RETURNED TO REGULAR DIET POST EGD, AMBULATORY TO BR. PTS DENIES PAIN/DISCOMFORT AT PRESENT. IV ACCESS ON RIGHT WRIST 20G. PATENT/INTACT/FLUIDS RUNNING N/S AT 75 CC/HR. PT IS S/P EGD WITH DR PEOPLES. PT IS NOW ON NASAL CANULA AND ON 5L. TOLERATING WELL. NO S/S OF DISTRESS OR SOB. BREATHING EVENLY/UNLABORED. SAFETY MEASURES MAINTAINED. BED IN LOWEST/LOCKED POSITION, WHEELS LOCKED, CALL LIGHT/BEDSIDE TABLE W/I REACH. SCHEDULED MEDICATIONS ADMINISTERED. PT TURNED/REPOSITIONED PER UNIT PROTOCOL. ALL NEEDS ANTICIPATE. WILL CONTINUE THE PLAN OF CARE.
[2024-04-17 20:00] VITALS: BP 104/49; TEMP 97.7; O2SAT 96
[2024-04-18 04:00] VITALS: BP 95/59; TEMP 99; O2SAT 96
--- NOTE | 2024-04-18 07:12 | NUR ---
RN OPENING NOTES RECEIVED PT IN BED, A/O X4. ABLE TO MAKE NEEDS KNOWN. ON 3L O2 VIA NC, TOLERATING WELL. NO S/S OF SOB NOTED AT THIS TIME. IV ACCESS ON RIGHT WRIST 20G, PATENT AND INTACT CURRENTLY RUNNING NS @ 75 ML/HR. AMBULATORY WITH BRP. SAFETY MEASURES IMPLEMENTED, BED IN LOWEST LOCKED POSITION, BED ALARM ON, SIDE RAILS X2, CALL LIGHT WITHIN REACH. WILL CONTINUE PLAN OF CARE.
[2024-04-18 07:17] LABS: BASOPHILS % (AUTO) 0.4 % (0.0-2.0); EOSINOPHILS % (AUTO) 0.2 % (0.0-6.0); HEMATOCRIT 25 % (39-51); HEMOGLOBIN 7.5 g/dL (13.5-17.5); LYMPHOCYTES # (AUTO) 1.2 K/uL (0.8-4.8); LYMPHOCYTES % (AUTO) 9.8 % (20.0-44.0); MEAN CORPUSCULAR HEMOGLOBIN 23 PG (26.0-33.0); MEAN CORPUSCULAR HGB CONC 30 g/dl (31.0-36.0); MEAN CORPUSCULAR VOLUME 76 fL (80-96); MONOCYTES # (AUTO) 0.9 K/uL (0.1-1.30); MONOCYTES % (AUTO) 7.6 % (2.0-12.0); NEUTROPHILS # (AUTO) 9.8 K/uL (1.8-8.9); PLATELET COUNT (AUTO) 309 K/uL (150-450); RED BLOOD CELL COUNT(AUTO) 3.28 MIL/uL (4.5-6.0); RED CELL DISTRIBUTION WIDTH 22.4 % (11.5-15.0); WHITE BLOOD COUNT (AUTO) 11.9 K/uL (4.3-11.0)
[2024-04-18 08:00] VITALS: BP 97/58; TEMP 98.4; O2SAT 93
[2024-04-18 08:23] LABS: ALANINE AMINOTRANSFERASE 16 U/L (12-78); ALBUMIN 2.3 g/dL (3.4-5.0); ALKALINE PHOSPHATASE 80 U/L (46-116); ASPARTATE AMINOTRANSFERASE 11 U/L (15-37); BILIRUBIN,DIRECT 0.1 mg/dL (0.0-0.2); BILIRUBIN,TOTAL 0.5 mg/dL (0.2-1.0); CALCIUM, SERUM 7.9 mg/dL (8.5-10.1); CARBON DIOXIDE 27 mmol/L (21-32); CHLORIDE 110 mmol/L (98-107); CREATININE 0.9 mg/dL (0.6-1.3); GLUCOSE 124 mg/dL (74-106); POTASSIUM 3.5 mmol/L (3.5-5.1); SODIUM SERUM 142 mmol/L (136-145); TOTAL PROTEIN, SERUM 5.1 g/dL (6.4-8.2); UREA NITROGEN, BLOOD 14 mg/dL (7-18)
[2024-04-18] MEDS: CYANOCOBALAMIN 1,000 MCG/ML VIAL SQ SCH (08:29)
[2024-04-18] MEDS ORDERED: FERR325T24 PO (09:34)
[2024-04-18 09:46] LABS: MAGNESIUM 1.8 mg/dL (1.8-2.4); PHOSPHORUS 3.6 mg/dL (2.5-4.9)
[2024-04-18] MEDS: MENTHOL/CETYLPYRD (CEPACOL) 1 LOZ LOZENGE PO PRN (12:10)
[2024-04-18 16:00] VITALS: BP 97/75; TEMP 98.6; O2SAT 96
[2024-04-18] MEDS: PANTOPRAZOLE 40 MG TABLET.DR PO SCH (16:15)
--- NOTE | 2024-04-18 17:51 | NUR ---
RN NOTE PT MEDICALLY STABLE FOR D/C HOME PER MD. A/O X4. ABLE TO MAKE NEEDS KNOWN. ON ROOM AIR, TOLERATING WELL, SATING 96%. NO S/S OF SOB NOTED AT THIS TIME. BELONGINGS LIST CHECKED. D/C INSTRUCTIONS AND F/U PLANS GIVEN TO PT AND FAMILY, PT AND FAMILY VERBALIZE UNDERSTANDING. AWAITING PT CLASS 1 OWNER OPERATOR BY SON FOR TRANSPORT HOME.
--- NOTE | 2024-04-18 18:31 | NUR ---
RN NOTE PT WHEELED OUT TO LOBBY VIA WHEELCHAIR BY YUDY CANNON AND PICKED UP BY SON FOR TRANSPORT HOME. PT A/O X4. IV ACCESS IN RIGHT WRIST REMOVED, INTACT AND NO BLEEDING. PT BELONGINGS IN HAND.
[2024-04-18 22:05] LABS: FERRITIN 77 ng/mL (8-388)
[2024-04-18 22:16] LABS: IRON, SERUM 12 ug/dl (50-175)
[2024-04-18 23:28] LABS: TOTAL IRON BINDING CAPACITY 221 ug/dl (250-450)
== END 2024-04-18 18:30 | disposition home or self-care (01) | DRG 393 ==
LOC: ER 16:14 → TELE1 19:19 → MEDSG1 04-17 01:23
PROVIDERS: ATTEND Student in an Organized Health Care Education/Training Program
PROC: 30233N1 Transfusion of Nonautologous Red Blood Cells into Peripheral Vein, Percutaneous Approach (ICD-10-PCS; principal; 2024-04-16)
PROC: 0DB68ZX Excision of Stomach, Via Natural or Artificial Opening Endoscopic, Diagnostic (ICD-10-PCS; 2024-04-17)
DX: T18.2XXA Foreign body in stomach, initial encounter (principal); E43 Unspecified severe protein-calorie malnutrition; C16.3 Malignant neoplasm of pyloric antrum; D50.9 Iron deficiency anemia, unspecified; Z87.11 Personal history of peptic ulcer disease; W44.F1XA Bezoar entering into or through a natural orifice, initial encounter; Y92.9 Unspecified place or not applicable; Z85.028 Personal history of other malignant neoplasm of stomach; E88.09 Other disorders of plasma-protein metabolism, not elsewhere classified; Z87.19 Personal history of other diseases of the digestive system; Z90.3 Acquired absence of stomach [part of]; E11.9 Type 2 diabetes mellitus without complications; Z86.19 Personal history of other infectious and parasitic diseases; Z87.891 Personal history of nicotine dependence; K57.90 Diverticulosis of intestine, part unspecified, without perforation or abscess without bleeding; Z79.899 Other long term (current) drug therapy
CPT/HCPCS: 36415; 80048-TC; 80076-TC; 82378; 82728-TC; 83540-TC; 83735-TC; 84100-TC; 84439-TC; 84484-TC; 85025-TC; 85730-TC; 86850-TC; 88305-TC; 88313-TC; 88342; A6403; G0378; J2470; J2704; J2916; J3420; J3490; J7030; J7050; P9016